=== PATIENT | female | born 1995 | race African-American/Black ===

== ENCOUNTER 2019-06-24 18:44 | Observation (INO) | payer SELFPAY ==
[~2019-06-24] VITALS: Ht 157.5 cm; Wt 105.8 kg
--- OUTSIDE RECORDS SUMMARY | 2019-06-24 18:47 | XMS REPORT ---
[facility] Address Unknown Phone Unavailable Care Team Providers Care It Operations Analyst Name Role Phone Unavailable Unavailable Payers Payer Name Policy Type Policy Number Effective Date Expiration Date Problems This patient has no known problems. Allergies, Adverse Reactions, Alerts Allergy Name Allergy Type Status Severity Reaction(s) Onset Date Inactive Date Treating Clinician Comments No Known Allergies DA Active U 2019-02-16 00:00:00 Medications This patient has no known medications. Encounters Start Date/Time End Date/Time Encounter Type Admission Type Attending Clinicians Care Facility Care Department Encounter ID 2019-02-04 10:48:20 Inpatient [facility] [id number] 2019-03-08 14:42:00 2019-03-08 12:57:00 Inpatient E [facility] [id number] 2019-02-18 16:48:00 2019-02-18 16:48:00 Emergency E [facility] [id number] 2019-02-17 10:04:00 2019-02-17 10:04:00 Emergency E [facility] 7502 Results Test Description Test Time Test Comments Text Results Atomic Results Result Comments Pap LB, HPV-hr HPV, high-risk (test ofrp=[id number]) NEGATIVE NEGATIVE THIS HIGH-RISK HPV TEST DETECTS THIRTEEN HIGH-RISK TYPES(16/18/31/33/35/39/45/51/52/56/58/59/68) WITHOUT DIFFERENTIATION.. Note: (test vnuo=[id number]) COMMENT THE PAP SMEAR IS A SCREENING TEST DESIGNED TO AID IN THE DETECTION OFPREMALIGNANT AND MALIGNANT CONDITIONS OF THE UTERINE CERVIX. IT IS NOT ADIAGNOSTIC PROCEDURE AND SHOULD NOT BE USED THE SOLE MEAN S OF DETECTINGCERVICAL CANCER. BOTH FALSE-POSITIVE AND FALSE-NEGATIVE REPORTS DO OCCUR.. [id number] (test jftx=[id number]) . Electronically signed by: (test ymbg=[id number]) COMMENT DREAD LYNN MD, PATHOLOGIST Performed by: (test otye=[id number]) COMMENT NARESH MADRIGAL, SOUND EFFECTS TECHNICIAN Specimen adequacy: (test nlwt=[id number]) COMMENT SATISFACTORY FOR EVALUATION. ENDOCERVICAL AND/OR SQUAMOUS METAPLASTICCELLS (ENDOCERVICAL COMPONENT) ARE PRESENT. DIAGNOSIS: (test qeqb=309257) COMMENT NEGATIVE FOR INTRAEPITHELIAL LESION AND MALIGNANCY.REACTIVE CELLULAR CHANGES AND/OR REPAIR ARE PRESENT. Comment Electronically Received 02-MAY-17: SOURCE.............ENDOCERVIX LMP / PREV TREAT...LAR=[id number] NO. OF CONTAINERS..[address], Ng, Trich vag by HOLLI* Test Item Value Reference Range Comments Gonococcus by HOLLI (test kwjs=421433) NEGATIVE NEGATIVE Trich vag by HOLLI (test gdfo=214639) NEGATIVE NEGATIVE Chlamydia by HOLLI (test mzse=170726) NEGATIVE NEGATIVE Written Authorization* Test Item Value Reference Range Comments Written Authorization (test dbyb=[id number]) COMMENT WRITTEN AUTHORIZATION RECEIVED.AUTHORIZATION RECEIVED FROM [facility] [id number] BY PARRIS ROTH RPR* Test Item Value Reference Range Comments RPR (test ezma=482095) NON REACTIVE NON REACTIVE HEMOGLOBIN A1C* Test Item Value Reference Range Comments HEMOGLOBIN A1C (test ozmh=476263) 5.7 % 4.8-5.6 .PRE-DIABETES: 5.7 - 6.4DIABETES: >6.4GLYCEMIC CONTROL FOR ADULTS WITH DIABETES: <7.0 Glucose, Serum* Test Item Value Reference Range Comments Glucose, Plasma (test qfvz=246091) 85 MG/DL 65-99 Lipid Panel* Test Item Value Reference Range Comments LDL Cholesterol Calc (test ufgr=153155) 105 MG/DL 0-99 Cholesterol, Total (test sowj=697813) 178 MG/DL 100-199 HDL Cholesterol (test efec=057461) 54 MG/DL >39 Triglycerides (test ynnf=347525) 93 MG/DL 0-149 VLDL Cholesterol Krishan (test vbwv=471868) 19 MG/DL 5-40 TSH* Test Item Value Reference Range Comments TSH (test xrhh=603523) 7.240 UIU/ML 0.450-4.500 MA to contact pt to advise of need to complete full thyroid panel in 1-3 months. PANEL 694374* Test Item Value Reference Range Comments HIV Screen 4th Generation wRfx (test fbog=647937) NON REACTIVE NON REACTIVE CBC w/ Differential/Platelet* Test Item Value Reference Range Comments Platelets (test qsye=696050) 402 X10E3/UL 150-379 WBC (test npjd=780241) 7.8 X10E3/UL 3.4-10.8 RBC (test jxkl=151703) 4.33 X10E6/UL 3.77-5.28 Hemoglobin (test ayfw=234590) 12.1 G/DL 11.1-15.9 PLEASE NOTE REFERENCE INTERVAL CHANGE Hematocrit (test rfme=439707) 36.4 % 34.0-46.6 MCV (test pbhb=327352) 84 FL 79-97 MCH (test iccz=324371) 27.9 PG 26.6-33.0 MCHC (test szpz=457489) 33.2 G/DL 31.5-35.7 RDW (test hbsd=491617) 14.4 % 12.3-15.4 Neutrophils (test kxrh=852255) 56 % NOT ESTAB. Lymphs (test rmya=984270) 31 % NOT ESTAB. Monocytes (test eobt=259347) 10 % NOT ESTAB. Eos (test cwre=823055) 2 % NOT ESTAB. Basos (test dqtn=416924) 1 % NOT ESTAB. Neutrophils (Absolute) (test jluv=983477) 4.4 X10E3/UL 1.4-7.0 Lymphs (Absolute) (test dcra=328146) 2.4 X10E3/UL 0.7-3.1 Monocytes(Absolute) (test korm=725044) 0.8 X10E3/UL 0.1-0.9 Eos (Absolute) (test lvra=243935) 0.1 X10E3/UL 0.0-0.4 Baso (Absolute) (test buvx=117765) 0.0 X10E3/UL 0.0-0.2 Immature Granulocytes (test nnkc=271741) 0 % NOT ESTAB. Immature Grans (Abs) (test nygb=922238) 0.0 X10E3/UL 0.0-0.1 Test, Urine* Test Item Value Reference Range Comments Test, Urine (test anwg=314198) Negative
--- OUTSIDE RECORDS SUMMARY | 2019-06-24 18:47 | XMS REPORT | Summary of Care ---
Author Author Avinash Bush, Farzana Organization Unknown Address Unknown Phone Unavailable Care Team Providers Care Rigging Loft Mechanic Name Role Phone HUMERA Ariza, GLENN Unavailable Unavailable JESUS MANUEL Ariza, SAAB Unavailable Unavailable PAUL Ariza, FLORI Unavailable Unavailable ELLIOT Ariza, CHENCHEN Unavailable Unavailable FOREST Ariza, HANG Unavailable Unavailable Avinash Bush, Farzana Unavailable Unavailable [facility] Unavailable Unavailable EMERY ALVAREZ, SURAJ ARBOLEDA Unavailable Unavailable GEMINI ALVAREZ, ROSALIE Weinstein Unavailable Unavailable PAUL ALVAREZ [place], FLORI Unavailable Unavailable MICKY ALVAREZ, LOREE BOSS Unavailable Unavailable [facility], [facility] Unavailable Unavailable Unavailable Unavailable Functional Status Name Dates Details Functional status health issues are not documented Status: Name Dates Details Cognitive status health issues are not documented Status: Problems Name Dates Details Vaginal discharge (623.5, N89.8) Status: Active Contraception management (V25.9, Z30.9) Status: Active follow-up (V24.2, Z39.2) Status: Active (V22.2, Z34.90) Status: Active Short interval between pregnancies affecting , antepartum (V23.89, O09.899) Status: Active Maternal obesity, antepartum (649.13, O99.210) Status: Active (V22.2, Z34.90) Status: Active Anemia in (648.20, O99.019) Status: Active Screening for STD (sexually transmitted disease) (V74.5, Z11.3) Status: Active (V22.2, Z34.90) Status: Active Medications Name Dates Details Vitamins TABS Active Ferralet 90 90-1 MG Oral Tablet 1QD - TAKE ONE CAPSULE BY MOUTH EVERY DAY * Quantity: 30 Refills: 6 GLENN GRUBBS M.D. * Start : 25-Jul-2014 Active Norethindrone 0.35 MG Oral Tablet TAKE 1 TABLET DAILY. * Quantity: 1 Refills: 11 GLENN GRUBBS M.D. * Start : 04-Jan-2015 Active Terconazole 80 MG Vaginal Suppository INSERT 1 SUPPOSITORY INTRAVAGINALLY AT BEDTIME FOR 3 NIGHTS. * Quantity: 1 Refills: 1 FLORI MILLER M.D. * Start : 31-Dec-2017 Active 3 Suppository Box Metoclopramide HCl - 10 MG Oral Tablet TAKE 1 TABLET EVERY 6 HOURS NEEDED. * Quantity: 30 Refills: 1 FLORI MILLER M.D. * Start : 18-Mar-2018 Active Ferralet 90 90-1 MG Oral Tablet TAKE 1 TABLET DAILY * Quantity: 30 Refills: 1 KAISER KEN M.D. * Start : 06-Apr-2018 Active Docusate Sodium 100 MG Oral Capsule TAKE 1 CAPSULE TWICE DAILY. * Quantity: 60 Refills: 3 KAISER KEN M.D. * Start : 06-Apr-2018 Active Breast Pump USE DIRECTED. DOUBLE ELECTRIC * Quantity: 1 Refills: 0 FLORI MILLER M.D. * Start : 27-Apr-2018 Active Norethindrone 0.35 MG Oral Tablet TAKE 1 TABLET DAILY. * Quantity: 1 Refills: 11 FLORI MILLER M.D. * Start : 04-Jun-2018 Active 28 Tablet Pack Vitafol-OB+DHA 65-1 & 250 MG Oral Take 1 tab PO daily * Quantity: 1 Refills: 5 FLORI MILLER M.D. * Start : 22-Nov-2018 Active 60 Unit Box Iron (Ferrous Gluconate) 256 (28 Fe) MG Oral Tablet TAKE 1 TABLET DAILY * Quantity: 30 Refills: 0 HANG GARG M.D. * Start : 28-Dec-2018 Active Ferralet 90 90-1 MG Oral Tablet TAKE 1 TABLET DAILY * Quantity: 60 Refills: 3 MARIE ZARATE M.D. * Start : 14-Feb-2019 Active Allergies and Adverse Reactions Name Dates Details No Known Drug Allergies (Allergy) Status: Active Past Medical History Name Dates Details History of Medical history non-contributory (V49.9, Z78.9) Status: Resolved History of Screening for STD (sexually transmitted disease) (V74.5, Z11.3) Status: Resolved Procedures Procedure Dates Details Procedures not documented Immunization Name Dates Details Fluzone Quadrivalent 0.5 ML Intramuscular Suspension Lot #: [id number] on: 20-Jun-2014 Tdap (Adacel) Lot #: [id number] on: 08-Aug-2014 Tdap (Adacel) Lot #: [id number] on: 19-Feb-2018 Flulaval Quadrivalent 0.5 ML Intramuscular Suspension Prefilled Syringe Lot #: [id number] on: 19-Feb-2018 Fluzone Quadrivalent 0.5 ML Intramuscular Suspension Prefilled Syringe Lot #: [id number] on: 04-Feb-2019 Family History Name Dates Details Family history of hypertension (V17.49, Z82.49) Status: Active Family history of diabetes mellitus (V18.0, Z83.3) Status: Active Name Dates Details No pertinent family history (V49.89, Z78.9) Status: Active Social History Name Dates Details - Status: Name Dates Details Never smoker Vital Signs Date Test Result Details :11 BP Systolic 112 mm[Hg] Status: Comments: Location: E; Position: Sitting BP Diastolic 75 mm[Hg] Status: Comments: Location: [facility]; Position: Sitting Weight 241.375 lb Status: Temperature 97 f Status: Comments: Method: Tympanic Heart Rate 74 /min Status: Respiration Rate 18 /min Status: O2 SAT 98 % Status: Comments: Source: :39 BP Systolic 124 mm[Hg] Status: Comments: Location: E; Position: Sitting BP Diastolic 77 mm[Hg] Status: Comments: [place] [facility] Position: Sitting Weight 246.125 lb Status: Temperature 97.2 f Status: Comments: Method: Tympanic Heart Rate 89 /min Status: Respiration Rate 18 /min Status: O2 SAT 99 % Status: Height 63 in Status: Body Mass Index Calculated 43.6 kg/m2 Status: Body Surface Area Calculated 2.11 m2 Status: Results Date Description Value Details :16 [QLH] CBC (INCLUDES DIFF/PLT) WBC 7.5 {K/CMM} Range: 3.7-10.4 RBC 3.58 {M/CMM} (Below low threshold) Range: 4.20-5.40 Hgb 9.0 g/dl (Below low threshold) Range: 12.0-16.0 Hct 27.7 % (Below low threshold) Range: 36.0-48.0 MCV 77.4 fL (Below low threshold) Range: 80.0-98.0 MCH 25.3 pg (Below low threshold) Range: 27.0-31.0 MCHC 32.6 g/dl Range: 32.0-36.0 RDW 13.9 % Range: 11.5-14.5 Platelet 334 {K/CMM} Range: 133-450 Mean Platelet Volume 7.8 fL Range: 7.4-10.4 :16 [QLH] Differential Segmented Neutrophils 63.1 % Range: 45.0-75.0 Monocytes 11.1 % Range: 2.0-12.0 Lymphocytes 23.0 % Range: 20.0-40.0 Eosinophils 1.6 % Range: 0.0-4.0 Basophils 1.2 % (Above high threshold) Range: 0.0-1.0 Segs-Bands # 4.7 {K/CMM} Range: 1.5-8.1 Lymphocytes # 1.7 {K/CMM} Range: 1.0-5.5 Monocytes # 0.8 {K/CMM} Range: 0.0-0.8 Eosinophils # 0.1 {K/CMM} Range: 0.0-0.5 Basophils # 0.1 {K/CMM} Range: 0.0-0.2 Microcyte 1+ (Abnormal) Range: None Seen :16 [QH] HIV AB, HIV 1/2, EIA, WITH REFLEXES HIV Ag/Ab 4th Gen Negative Range: Negative Comments: HIV test results should be considered positive only when both the screening andthe confirmatory tests are positive. A negative confirmatory test in patientswith a positive screening test does not exclude HIV infection. If clincallywarranted, an HIV RNA quantitative test should be ordered. :16 [QLH] RPR RPR Non-Reactive Range: Non-Reactive :16 [QH] STREPTOCOCCUS, GROUP B CULTURE (Genital Strep Screen) Comments: Source: Vaginal/RectalBody Site: VAG FINAL REPORT No Beta-Hemolytic Streptococci Isolated :00 . [facility] - GC/Chlamydia Comments: Department of Pathology & Laboratory Medicine For: MSB 2.008 64[address] [place] [address] Phone: [phone] Email: [email or web address] LMP: Trichomonas GC/ChlamydiaGC~NegativeChlamydia~Negative~Testing is performed using FDA-approved APTIMA COMBO 2 Assay on the We system(i.e., Fee Clerk-mediated amplification of rRNA followed by target- specifichybridization and dual kinetic fluorescence detection). This assay is designed for thedetection of Chlamydia trachomatis (CT) and Neisseria gonorrhoeae (GC) in femaleendocervical and vaginal, male urethral, and female and male urine specimens. CT/GCviability and/or infectivity can't be inferred from a positive test result since targetRNA may persist in the absence of infectious microorganisms. A negative test doesn'texclude the possibility of infection due to possible improper specimencollection/transport/handling (inadequate specimen collection), presence of inhibitor(s),concurrent antibiotic therapy, or presence of insufficient RNA for detection. The testresult must be interpreted in conjunction with other laboratory and clinical data. Theassay is not intended to replace cervical exams and endocervical specimens for diagnosisof female urogenital infections. The assay is not intended for the evaluation ofsuspected sexual abuse or for other medicao-legal indications. For those patients forwhom a false positive result may have adverse psycho-social impact, the CDC recommendsretesting. The assay has been validated by the [facility] Department of Pathology and Laboratory Medicine.Jennifer Roberson MD, PhD TrichomonasTrichomonas~Negative APTIMA Trichomonas vaginalis (TV) Assay ReportThe APTIMA Trichomonas vaginalis Assay is an FDA-approved in vitro qualitative nucleicacid amplification test (NAAT) for the detection of ribosomal RNA (rRNA) from Trichomonasvaginalis to aid in the diagnosis of trichomoniasis using the We System involvingthe technologies of target capture, insecticide sprayer-mediated amplification (TMA), andhybridization protection assay (HPA). Results from the APTIMA Trichomonas vaginalis Assayshould be interpreted in conjunction with other clinical data available to the clinician.Testing showed greater than 95% positivity for panels containing 0.01 TV/mL inPreservCyt liquid Pap specimen matrix and panels containing 0.003 TV/mL in swabspecimen matrix. A negative result does not preclude a possible infection because ofuneven distribution of the organisms, target levels below the assay limit of detection,improper specimen collection, technical error, specimen mix-up, or the presence ofTrichomonas tenax or Pentatrichomonas hominis in a specimen causing crossreactivity. If negative results from the specimen do not fit with the clinicalimpression, anew specimen is recommended.Therapeutic failure or success cannot be determined with the APTIMA Trichomonas vaginalisAssay since nucleic acid may persist following appropriate antimicrobial therapy.The assay has been validated by the [facility] Department of Pathology and Laboratory Medicine.Jennifer Roberson MD, PhD GC/Chlamydia REPORT Plan of Care Name Dates Details Planned Observations Planned Goals not documented Planned Encounters Appointment; [facility] M.D. On: 07-Mar-2019 9:30 Interventions Provided Discussion/Summary* Guideline Used: * Clinic [facility] * Patient called stated she feels her B/P (138/87) is elevated is 40 wks and also has swollen feet, denies visual changes, denies headache. 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 Patient stated her usual B/P is 124/77. * NTL paged @ 5:01 am; @5:[address] Deluca notified of above information and warm telephone transfer done. * Intended Caller Action: * Other: Speak with clinic staff * Additional Information: * Task sent to Dr. Miller. Instructions Name Dates Details Instructions not documented Encounters Appointment; FLORI MILLER M.D. Encounter Diagnosis: Problem not documented On: 31-Dec-2017 11:00 Appointment; FLORI MILLER M.D. Encounter Diagnosis: Problem not documented On: 14-Jan-2018 10:45 Appointment; AIRPORT SHUTTLE DRIVER, ROOM2 Encounter Diagnosis: Problem not documented On: 14-Jan-2018 13:45 Appointment; FLORI MILLER M.D. Encounter Diagnosis: Problem not documented On: 04-Feb-2018 13:15 Appointment; ESTER MULLINS M.D. Encounter Diagnosis: Problem not documented On: 19-Feb-2018 14:20 Appointment; FLOIR MILLER M.D. Encounter Diagnosis: Problem not documented On: 04-Mar-2018 13:45 Appointment; FLORI MILLER M.D. Encounter Diagnosis: Problem not documented On: 18-Mar-2018 9:45 Appointment; [facility] M.D. Encounter Diagnosis: Problem not documented On: 30-Mar-2018 9:45 Appointment; FLORI MILLER M.D. Encounter Diagnosis: Problem not documented On: 08-Apr-2018 10:45 Appointment; AIRPORT SHUTTLE DRIVER, ROOM1 Encounter Diagnosis: Problem not documented On: 09-Apr-2018 10:30 Appointment; FLORI MILLER M.D. Encounter Diagnosis: Problem not documented On: 04-Jun-2018 13:30 Appointment; FLORI MILLER M.D. Encounter Diagnosis: Problem not documented On: 12-Nov-2018 15:45 Appointment; FLORI MILLER M.D. Encounter Diagnosis: Problem not documented On: 22-Nov-2018 9:45 Appointment; AIRPORT SHUTTLE DRIVER, ROOM3 Encounter Diagnosis: Problem not documented On: 09-Dec-2018 14:45 Appointment; FLORI MILLER M.D. Encounter Diagnosis: Problem not documented On: 24-Dec-2018 13:30 Appointment; HANG GAGR M.D. Encounter Diagnosis: Problem not documented On: 28-Dec-2018 16:45 Appointment; AIRPORT SHUTTLE DRIVER, ROOM4 Encounter Diagnosis: Problem not documented On: 03-Jan-2019 15:15 Appointment; MARIE ZARATE M.D. Encounter Diagnosis: Problem not documented On: 24-Jan-2019 8:15 Appointment; LOREE WEEKS M.D. Encounter Diagnosis: Problem not documented On: 28-Jan-2019 15:45 Appointment; LOREE WEEKS M.D. Encounter Diagnosis: Problem not documented On: 04-Feb-2019 8:15 Appointment; AIRPORT SHUTTLE DRIVER, ROOM1 Encounter Diagnosis: Problem not documented On: 07-Feb-2019 11:30 Appointment; LOREE WEEKS M.D. Encounter Diagnosis: Problem not documented On: 11-Feb-2019 8:45 Appointment; FLORI MILLER M.D. Encounter Diagnosis: Problem not documented On: 14-Feb-2019 9:00 Appointment; MARIE ZARATE M.D. Encounter Diagnosis: Problem not documented On: 14-Feb-2019 9:00 Appointment; LOREE WEEKS M.D. Encounter Diagnosis: Problem not documented On: 18-Feb-2019 10:15 Appointment; LOREE WEEKS M.D. Encounter Diagnosis: Problem not documented On: 25-Feb-2019 9:30 Appointment; AIRPORT SHUTTLE DRIVER, ROOM1 Encounter Diagnosis: Problem not documented On: 25-Feb-2019 11:30
[2019-06-24] MEDS ORDERED: KETOROLAC TROMETHAMINE 30 MG/ML VIAL IV STA (19:50)
[2019-06-24] MEDS ORDERED: PENICILLIN G BENZATHINE LA 1.2 MU TBX IM STA (19:50)
[2019-06-24] MEDS ORDERED: DEXAMETHASONE SOD PHOS 10 MG/1 ML VIAL IV ONE (20:00)
[2019-06-24] MEDS ORDERED: SODIUM CHLORIDE 0.9% 1000ML 1,000 ML IV SCH (20:00)
[2019-06-24] MEDS ORDERED: KETOROLAC TROMETHAMINE 30 MG/ML VIAL ONE (20:35)
[2019-06-24] MEDS ORDERED: IOPAMIDOL 370 MG/ML 200 ML INFUS..BTL INJ ONE (21:04)
[2019-06-24] MEDS ORDERED: SODIUM CHLORIDE 0.9% 50ML 50 ML ONE (21:04)
--- NOTE | 2019-06-24 22:09 | Diagnostic Imaging Report ---
EXAMINATION: CT of the neck with contrast HISTORY: Sore throat, tonsillar swelling, possible strep infection for last 3 days. COMPARISON: None TECHNIQUE: Multidetector helical axial images were obtained from the sternal notch through the skull base during intravenous infusion of iodinated contrast material. Images were reconstructed using soft tissue and bone algorithms and were viewed in multiplanar format. Intravenous contrast: 100 mL of Isovue-370. Dose modulation, iterative reconstruction, and/or weight based adjustment of the mA/kV was utilized to reduce the radiation dose to as low as reasonably achievable. FINDINGS: Nodes: No lymphadenopathy. Sinuses: Imaged portions unremarkable. Oral cavity: Unremarkable. Salivary glands: Parotid and submandibular glands unremarkable. Pharynx: Diffuse enlargement of the bilateral palatine tonsils with narrowing of the oropharynx, no associated abscess. There is also prominence of the nasopharyngeal adenoid tissue, likely reactive. Larynx: Unremarkable. Thyroid gland: Unremarkable. Upper esophagus: Unremarkable. Blood vessels: Unremarkable. Bones: Unremarkable. IMPRESSION: Consistent with bilateral palatine tonsillitis, no evidence of abscess at this time. Signed by: Dr. Hailee Hurtado M.D. on 06/24/2019 10:06 PM
--- NOTE | 2019-06-24 22:18 | NUR ---
[facility] NOTIFIED, ETA 30 MINUTES
[2019-06-24] MEDS ORDERED: KETOROLAC TROMETHAMINE 30 MG/ML VIAL IV PRN (22:30)
[2019-06-24] MEDS: CEFTRIAXONE SOD 1 GM/NS 50 ML 50 ML IV SCH (23:50)
[2019-06-24] MEDS: SODIUM CHLORIDE 0.9% 1000ML 1,000 ML IV SCH (23:50)
--- NOTE | 2019-06-24 23:50 | NUR ---
Patient received from [facility] via stretcher accompanied by family members. AAO x 4, Patient had no complaints of pain. Respirations even and non-labored. Admission history obtained. Initial physical assessment performed. IVF infusing at 125 cc/hr. Patient placed on droplet isolation: Reason: Strep A positive. Patient oriented to room, call light and plan of care. Patient instructed to call for assistance when needed. Call light within reach.
[2019-06-25] VITALS (9 sets, daily range): BP systolic 104–136; BP diastolic 54–87
[2019-06-25] MEDS: CLINDAMYCIN 600MG / 50ML 50 ML IV SCH ×4 (00:30→17:44)
[2019-06-25] MEDS: DEXAMETHASONE SOD PHOS 10 MG/1 ML VIAL IV SCH ×3 (01:04→12:45)
[2019-06-25] MEDS: SODIUM CHLORIDE 0.9% 1000ML 1,000 ML IV SCH (06:19)
--- NOTE | 2019-06-25 06:36 | NUR ---
Dr.L. Lakhani aware of "Routine Consult". Reason: Strep tonsillitis.
--- NOTE | 2019-06-25 07:25 | NUR ---
PT UP IN BED SLEEPING ,NO S/S DISCOMFORT
--- NOTE | 2019-06-25 12:00 | NUR ---
PT TOLERATING DIET WELL,C/O SORE THROAT ,NO DISTRESS NOTED
[2019-06-25] MEDS ORDERED: KETOROLAC TROMETHAMINE 30 MG/ML VIAL IV PRN (12:15)
--- NOTE | 2019-06-25 19:28 | NUR ---
Patient received lying in bed. Family at bedside. AAO x 4. Patient had no complaints of pain. Respirations even and non-labored. Fall precautions implemented. Patient instructed to call for assistance when needed. Call light within reach.
--- NOTE | 2019-06-25 20:05 | Consultation ---
DATE OF CONSULTATION: 06/25/2019 Hospital Consultation HISTORY OF PRESENT ILLNESS: I was kindly asked to see this 23-year-old woman for evaluation of severe acute tonsillitis. The patient has no previous history of difficulty with her tonsils and presents with a 2 to 3-day history of progressive sore throat. She was unable to tolerate p.o. intake and [facility]. Subsequent CT scan showed tonsillitis without abscess formation. She was begun on IV antibiotics and steroids. She is now able to tolerate p.o. intake, but complains of right-sided throat pain and right-sided ear pain. Her history of present illness, past medical history, and past surgical history are noncontributory. REVIEW OF SYSTEMS: Otolaryngology review of symptoms is pertinent for right-sided decreased hearing and pertinent for a denial of shortness of breath or difficulty breathing. PHYSICAL EXAMINATION: The right pinna is normal. The right external auditory canal has cerumen impacted in the medial aspect. The tympanic membrane could not be visualized. The right postauricular area had no pain, swelling, erythema, or tenderness. The left pinna was normal. Left external auditory canal was normal. Left tympanic membrane was normal. The left postauricular area had no pain, swelling, erythema, or tenderness. Intranasal examination showed a mild S-shaped nasal septal deviation. The nasal mucosa was unremarkable. Oral cavity examination showed mild candidiasis of the dorsum of the tongue and otherwise is unremarkable. She has bilateral erythematous tonsils with exudate, but this is slightly worse on the right side. The anterior tonsillar pillars are symmetric, minimally erythematous and edematous. The uvula is midline with minimal edema. The posterior pharyngeal wall is unremarkable. She has bilateral jlbu-bx-dfnnyofc shotty cervical adenopathy, slightly worse on the right side than the left. ASSESSMENT: 1. Severe acute tonsillitis. 2. Right-sided otalgia, probably secondary to the tonsillitis with no acute pathology identified. PLAN: 1. From Otolaryngology standpoint, she can be discharged on p.o. antibiotics and a 5-day course of prednisone 20 mg per day. However, she is also complaining of chest congestion and pain in her chest and if not cleared from a medical standpoint, would recommend continuation of IV antibiotics and steroids until discharge. 2. Followup with me in approximately 2 weeks. MD ELIZABETH Shi/OFE /[id number]
[2019-06-25] MEDS: CEFTRIAXONE SOD 1 GM/NS 50 ML 50 ML IV SCH (22:09)
[2019-06-25] MEDS ORDERED: SODIUM CHLORIDE 0.9% 250ML 250 ML ONE (22:09)
[2019-06-26] VITALS: BP 133/60
[2019-06-26 04:00] VITALS: BP 130/60
[2019-06-26] MEDS: CLINDAMYCIN 600MG / 50ML 50 ML IV SCH ×2 (06:00)
[2019-06-26 06:46] LABS: BASOPHILS % 0.1 % (0.0-1.0); HEMATOCRIT 33.2 % (34.2-44.1); HEMOGLOBIN 10.5 g/dL (12.0-16.0); LYMPHOCYTES # (AUTO) 0.9 (1.0-3.2); LYMPHOCYTES % 4.7 % (18.0-39.1); MEAN CORPUSCULAR HEMOGLOBIN 25.4 pg (28-32); MEAN CORPUSCULAR HGB CONC 31.6 g/dL (31-35); MEAN CORPUSCULAR VOLUME 80.4 fL (81-99); MONOCYTES # (AUTO) 1.1 (0.2-0.8); MONOCYTES % 6.2 % (4.4-11.3); NEUTROPHILS # (AUTO) 15.9 (2.1-6.9); NEUTROPHILS % 87.6 % (38.7-80.0); PLATELET COUNT 313 x10e3/uL (140-360); RED BLOOD COUNT 4.13 x10e6/uL (3.6-5.1); RED CELL DISTRIBUTION WIDTH 15.5 % (11.7-14.4)
[2019-06-26 06:56] LABS: ANION GAP 12.9 mmol/L (8-16); BLOOD UREA NITROGEN 9 mg/dL (7-26); BUN/CREATININE RATIO 14 (6-25); CALCIUM 9.1 mg/dL (8.4-10.2); CARBON DIOXIDE 23 mmol/L (22-29); CHLORIDE 108 mmol/L (98-107); CREATININE, SERUM 0.63 mg/dL (0.57-1.11); EST GLOMERULAR FILTRATION RATE > 60 ML/MIN (60-); GLUCOSE 194 mg/dL (74-118); POTASSIUM 3.9 mmol/L (3.5-5.1); SODIUM 140 mmol/L (136-145)
--- NOTE | 2019-06-26 07:00 | NUR ---
Walking rounds done. Patient resting comfortably. Bed-side shift report given to oncoming nurse.
[2019-06-26 08:00] VITALS: BP 126/59
[2019-06-26 08:18] VITALS: BP 126/59
[2019-06-26] MEDS: DEXAMETHASONE SOD PHOS 10 MG/1 ML VIAL IV SCH (08:53)
[2019-06-26 12:00] VITALS: BP 115/58
[2019-06-26] MEDS ORDERED: CLINDAMYCIN HC150 MG PO (14:15)
[2019-06-26] MEDS ORDERED: PREDNISONE20 MG PO (14:16)
--- NOTE | 2019-06-26 15:13 | NUR ---
Patient discharged home, prescription given, IV canula removed with tip intact, no ss of infiltration, denies any pain, not in any distress, patient aware about f/up appointment with Dr NOWAK. at bed side
--- NOTE | 2019-06-27 00:23 | Discharge Summary ---
CONSULTANTS: Dr. Jose Lakhani. FINAL DIAGNOSIS: Bilateral tonsillitis. PLAN: Discharged home with clindamycin 300 mg 3 times a day for 10 days and prednisone 20 mg daily for 5 days. HOSPITAL COURSE: The patient is a 23-year-old female with severe [id number] tonsillitis. In the soft tissue of the neck, there is no drainable abscess. Dr. Lakhani has seen the patient. The patient cleared for discharge home. Antibiotics for 10 days and prednisone for 5 days. Prescription given to the patient. The patient is otherwise stable. She will go home today. Follow up with Dr. Lakhani in 2 weeks and follow up with primary care physician within a week. MD ARELY Dove/OFE /[id number]
== END 2019-06-26 14:58 | disposition home or self-care (01) ==
LOC: FSED 18:44 → ERHOLD 22:24 → MED/SURG3 23:07
PROVIDERS: ADMIT Internal Medicine; ATTEND Internal Medicine
DX: J03.00 Acute streptococcal tonsillitis, unspecified (principal); H92.01 Otalgia, right ear
CPT/HCPCS: 36415; 70491; 80048; 80053; 83518; 85025 ×2; 87400; 99284; G0378 ×3; J0561; J0696 ×2; J1100 ×3; J1885; J7030 ×2; J7050; Q9967